=== PATIENT | female | born 1945 | race Caucasian/White ===

== ENCOUNTER 2017-07-23 22:10 | Emergency (ER) | payer MEDICARE, OTHER, SELFPAY ==
--- NOTE | 2017-07-23 22:10 | DT_ITS ---
This patient was seen during an EMR downtime July 18, 2017 - July 25, 2017. This patient may have a combination of paper and electronic documentation or all paper documentation. All documentation is viewable within the e-chart portion of [facility] for each patient visit.
== END 2017-07-23 22:20 | disposition home or self-care (01) ==
LOC: ED 07-24 16:18
PROVIDERS: Emergency Provider Emergency Medicine; Family Provider Family Medicine; PCP Family Medicine
DX: S61.204A Unspecified open wound of right ring finger without damage to nail, initial encounter (principal); W26.9XXA Contact with unspecified sharp object(s), initial encounter; Y93.G1 Activity, food preparation and clean up; Y92.000 Kitchen of unspecified non-institutional (private) residence as the place of occurrence of the external cause; Y99.8 Other external cause status
CPT/HCPCS: 90471; 90715; 99282

== ENCOUNTER 2021-07-01 21:14 | Emergency (ER) | payer MEDICARE, OTHER, SELFPAY ==
[2021-07-01 21:16] VITALS: BP 170/95; PULSE 60; RESP 18; TEMP 36.2; O2SAT 98; BMI 24.3
--- NOTE | 2021-07-01 21:39 | EDS_ITS ---
HPI History of Present Illness Chief Complaint: Flank Pain Detail of Chief Complaint: Right lower back pain. Patient points to the posterior iliac spine Informant: patient and family Onset/Context/Timing Onset: Days (Tuesday) Context: Sudden Onset Timing: Continuous and Waxes and wanes Quality: Pain Location: Superior posterior iliacs spine on the right Current Severity: Mild Maximum Severity: Moderate Worsened by: Movement Relieved by: Remaining still Associated Symptoms Associated Symptoms: None Narrative Narrative: Patient is 35-year-old woman who is visiting from [place]. She states she lived in [place] prior to moving. She denies fever, chills night sweats. She denies cardiac respiratory symptoms. She denies GI symptoms. She denies urologic symptoms. There is no history of trauma. Prior similar symptoms: No Recent Illness/[facility]: [facility] Medical History HTN (hypertension) Home Medications amlodipine 2.5 mg PO DAILY 02/15/14 [History Last Taken Unknown] Allergy/AdvReac Type Severity Reaction Status Date / Time Penicillins Allergy Unknown Verified 07/01/21 21:17 Surgical History S/P hip replacement Social History (Updated 07/01/21 @ 21:[address] Ovidio Copeland MD) household members: none Smoking Status: Never smoker substance use type: does not use ROS ROS ED Constitutional Constitutional ED: Denies fever(s), subjective, sweats or weight loss Gastrointestinal Gastrointestinal: Reports other Details: Patient reports several days ago she had pain in the right inguinal area. ; Denies abdominal pain, constipation, diarrhea, melena, nausea or vomiting Genitourinary Genitourinary ED: Denies dysuria, hematuria or urinary frequency Musculoskeletal Musculoskeletal: Reports back pain; Denies arthralgias, myalgias or neck pain Integumentary Denies rash Neurologic Neurologic: Denies headache(s) or weakness Psychiatric Psychiatric: Denies anxiety or depression EXAM Physical Exam Const Vital Signs: 07/01/21 21:16 07/01/21 21:26 Temperature 97.1 F L Temperature Source Temporal Pulse Rate 60 Respiratory Rate 18 Respiratory Effort Normal Non-Labored Respiratory Pattern Normal Blood Pressure 170/95 H Blood Pressure Mean 120 Pulse Ox 98 Oxygen Delivery Method Room Air Positive well nourished and well developed General Appearance ED: well developed and NAD; Negative for cyanotic or diaphoretic HEENT Reports moist mucous membranes Negative for trauma or tenderness Eyes PERRL and EOMs intact bilaterally Neck no lymphadenopathy, supple and no JVD Resp normal respiratory effort and clear to auscultation bilaterally Cardio regular rate, regular rhythm, S1 normal heart sound, S2 normal heart sound and no murmurs GI normal to inspection, nondistended, normoactive bowel sounds, non-tender and non-distended Palpation: soft Back/Spine no CVA tenderness Cervical Spine: Negative for cervical spine tenderness Thoracic Spine / Upper Back: Negative for thoracic spinal tenderness or paraspinal muscle tenderness Lumbar Spine / Lower Back: Negative for lumbar spinal tenderness Extremity normal to inspection General Extremety ED: Negative for edema or tenderness General Extremity: Negative for edema Neuro oriented x3 and CN's II-XII intact bilaterally Sensorium / Orientation: alert Motor Exam: strength 5/5 throughout Psych mental status grossly normal Skin no rashes or lesions noted and no wounds General Skin Exam: elasticity normal MDM MDM MDM Narrative Medical decision making narrative: Patient presents with low back pain. Suspect this is muscle skeletal. Urine was obtained just to rule out urinary source. She received 1 Superior tablet for her pain Lab Data Attestation: I reviewed the patient's lab results. Lab results narrative: Macro was negative. There is no pyuria or hematuria. UA is not consistent with infection. Labs: Laboratory Results - last 24 hr 07/01/21 21:43 Urine Color Straw Urine Clarity Clear Urine pH 8.0 Ur Specific Igo 1.010 Urine Protein Negative Urine Glucose (UA) Normal Urine Ketones Negative Urine Occult Blood Negative Urine Nitrite Negative Urine Bilirubin Negative Urine Urobilinogen Normal Ur Leukocyte Esterase Negative Urine RBC 0 SEEN Urine WBC 0 SEEN Ur Squamous Epith Cells 0-5 SEEN Urine Bacteria 1+ Urine Mucus 0 SEEN Urine Yeast RARE Discharge Plan Triage Chief Complaint: Flank Pain ED Provider: Ovidio Copeland Dx/Rx/DC Orders Clinical Impression: Acute right-sided low back pain Instructions: ED Back Pain (Acute or Chronic) Prescriptions: No Action amlodipine 2.5 MG tablet 2.5 mg PO DAILY RF: 0 Referrals: [facility] [Other] - As Needed Activity Restrictions/Additional Instructions: 1. Apply ice to lower back 6-8 times a day 2. Take Tylenol as needed for pain Disposition Disposition: Home, Self Care
[2021-07-01 21:51] LABS: Mucous, Urine 0 SEEN /hpf (<or=2+); Red Blood Cells-Urine 0 SEEN /hpf (0-5); White Blood Cells 0 SEEN /hpf (0-5)
[2021-07-01 21:57] LABS: Color, Urine Straw (Yellow); Glucose, Dipstick Normal (Normal); Ketone-Dipstick Negative (Negative); Leukocyte Esterase-Dipstick Negative /ul (Negative); Nitrite-Dipstick Negative (Negative); Occult Blood-Urine Negative /ul (Negative); Protein-Dipstick Negative (Negative); Urine Bilirubin Dipstick Negative (Negative); Urine Clarity Clear (Clear); Urine Urobilinogen Normal (Normal)
[2021-07-01] MEDS: HYDROcodone Bitartrate/Apap 5/325 Tablet PO (22:13)
[2021-07-01 22:16] LABS: Bacteria 1+ /hpf (None Seen); Squamous Epithelial Cells - UA 0-5 SEEN /hpf (5-10); Yeast-Urine RARE /hpf (None Seen)
== END 2021-07-01 22:37 | disposition home or self-care (01) ==
PROVIDERS: Emergency Provider Emergency Medicine; Visit Provider Emergency Medicine
DX: M54.50 Low back pain, unspecified (principal); I10 Essential (primary) hypertension; Z79.899 Other long term (current) drug therapy
CPT/HCPCS: 81001; 99283